=== PATIENT | female | born 1985 | race Caucasian/White ===

== ENCOUNTER 2018-08-24 05:25 | Inpatient (IN) | payer OTHER ==
[2018-08-24] MEDS ORDERED: OXYTOCIN 30 UNITS/LR 500 ML IV ×5 (07:30→22:30)
[2018-08-24] MEDS ORDERED: BUTORPHANOL 2 MG INJ IV ×2 (07:30)
[2018-08-24] MEDS ORDERED: MISOPROSTOL 200 MCG TAB PR ×2 (07:30→22:30)
[2018-08-24] MEDS ORDERED: CARBOPROST 250 MCG INJ IM ×2 (07:30→22:30)
[2018-08-24] MEDS ORDERED: IBUPROFEN 600 MG TAB PO (07:30)
[2018-08-24] MEDS ORDERED: LIDOCAINE 1% (MPF) 30 ML INJ INJ (07:30)
[2018-08-24] MEDS ORDERED: METHYLERGONOVINE 0.2 MG INJ IM ×2 (07:30→22:30)
[2018-08-24 08:45] LABS: ADD MAN DIFF? NO
[2018-08-24 08:49] LABS: WHITE BLOOD COUNT 12.1 10^3/ul (4.8-10.8)
[2018-08-24 08:49] LABS: BASOPHIL # 0.1 10^3/ul (0.0-0.1); BASOPHILS % 0.5 % (0.0-2.0); EOSINOPHILS # 0.1 10^3/ul (0.0-0.5); EOSINOPHILS % 0.9 % (0.0-7.0); HEMATOCRIT 34.6 % (37.0-47.0); HEMOGLOBIN 11.5 g/dl (12.0-16.0); LYMPHOCYTES # 2.6 10^3/ul (0.8-2.9); LYMPHOCYTES % 21.4 % (15.0-51.0); MEAN CORPUSCULAR HEMOGLOBIN 28.7 pg (29.0-33.0); MEAN CORPUSCULAR HGB CONC 33.2 g/dl (32.0-37.0); MEAN CORPUSCULAR VOLUME 86.3 fl (82.0-101.0); MONOCYTE # 1.4 10^3/ul (0.3-0.9); MONOCYTES % 11.5 % (0.0-11.0); NEUTROPHIL # 7.7 10^3/ul (1.6-7.5); NEUTROPHILS % 63.5 % (39.0-77.0); PLATELET COUNT 160 10^3/UL (140-415); RED BLOOD COUNT 4.01 10^6/ul (4.20-5.40); RED CELL DISTRIBUTION WIDTH 14.3 % (11.5-14.5)
[2018-08-24 09:12] LABS: INR 0.89; PROTIME 12.1 Sec (11.9-14.9); PT RATIO 0.9
[2018-08-24 09:13] LABS: PARTIAL THROMBOPLASTIN TIME 26.4 Sec (23.0-35.0)
[2018-08-24] MEDS: AMPICILLIN 2 GM/NS (PMX) 100 ML IV (09:33)
[2018-08-24] MEDS: LACTATED RINGER'S 1,000 ML IV ×3 (09:33→22:49)
[2018-08-24 09:52] LABS: HEPATITIS B SURFACE ANTIGEN NEGATIVE (NEGATIVE)
[2018-08-24] MEDS: AMPICILLIN 1 GM/NS (PMX) 50 ML IV ×2 (13:56→18:23)
[2018-08-24 14:57] LABS: RAPID PLASMA REAGIN NONREACTIVE (NR)
[2018-08-24] MEDS ORDERED: FENTAnyl 2MCG/ML-ROPIV 0.2% 100 ML (17:43)
[2018-08-24] MEDS: FENTAnyl 2MCG/ML-ROPIV 0.2% 100 ML BAG EPI (18:19)
[2018-08-24] MEDS: OXYTOCIN 30 UNITS/LR 500 ML IV (18:30)
[2018-08-24] MEDS ORDERED: NALOXONE (0.4 MG/ML) INJ IV (18:30)
[2018-08-24] MEDS ORDERED: CEFAZOLIN 2 GM/50 ML (PMX) 50 ML IVPB (22:30)
[2018-08-24] MEDS ORDERED: ONDANSETRON 4 MG INJ (23:27)
[2018-08-24] MEDS ORDERED: METOCLOPRAMIDE 10 MG INJ (23:27)
[2018-08-24] MEDS ORDERED: MIDAZOLAM 1 MG/ML 2 ML INJ ×5 (23:37→23:51)
[2018-08-24] MEDS ORDERED: LACTATED RINGER'S 1,000 ML IV (23:46)
[2018-08-24] MEDS ORDERED: OXYTOCIN 10 UNIT INJ (23:50)
[2018-08-24] MEDS ORDERED: FENTAnyl 50 MCG/ML VIAL (23:51)
[2018-08-24] MEDS ORDERED: morphine SULFATE/PF (10 MG/10 ML) INJ (23:52)
[2018-08-25] MEDS ORDERED: NALOXONE (0.4 MG/ML) INJ IV
[2018-08-25] MEDS ORDERED: ONDANSETRON 4 MG INJ IV
[2018-08-25] MEDS ORDERED: MIDAZOLAM 1 MG/ML 2 ML INJ IV
[2018-08-25] MEDS ORDERED: HYDROmorphONE 0.5 MG/0.5 ML SYG IV ×2
[2018-08-25] MEDS ORDERED: MEPERIDINE 25 MG INJ IV
[2018-08-25] MEDS ORDERED: EPHEDrine 25 MG/5 ML SYG IV
[2018-08-25] MEDS ORDERED: ZOLPIDEM 5 MG TAB PO
[2018-08-25] MEDS ORDERED: DIPHENHYDRAMINE 50 MG INJ IV ×2
[2018-08-25] MEDS ORDERED: LORAZEPAM 2 MG INJ IV
[2018-08-25] MEDS ORDERED: NALBUPHINE HCL (10 MG/1 ML) INJ IV
[2018-08-25] MEDS ORDERED: AZITHROMYCIN 500MG/250 ML IVPB (00:32)
[2018-08-25] MEDS ORDERED: KETOROLAC 30 MG INJ (00:32)
[2018-08-25] MEDS ORDERED: MISOPROSTOL 200 MCG TAB PR (01:00)
[2018-08-25] MEDS ORDERED: OXYTOCIN 30 UNITS/LR 500 ML IV (01:00)
[2018-08-25] MEDS ORDERED: METHYLERGONOVINE 0.2 MG INJ IM (01:00)
[2018-08-25] MEDS ORDERED: CARBOPROST 250 MCG INJ IM (01:00)
[2018-08-25] MEDS ORDERED: NACL 0.9% 3 ML SYG IV (01:00)
[2018-08-25] MEDS: OXYTOCIN 30 UNITS/LR 500 ML IV (05:17)
[2018-08-25] MEDS: valACYclovir 500 MG TAB PO ×2 (09:29→21:00)
[2018-08-25] MEDS: LACTATED RINGER'S 1,000 ML IV ×2 (13:02→20:00)
[2018-08-25] MEDS: KETOROLAC 30 MG INJ IV (13:09)
[2018-08-25] MEDS: LANOLIN HPA 1 PKT TOP (20:52)
[2018-08-25] MEDS: IBUPROFEN 800 MG TAB PO (22:00)
[2018-08-26] MEDS: LACTATED RINGER'S 1,000 ML IV ×3 (04:00→20:00)
[2018-08-26] MEDS: OXYCODONE/ACETAMINOPHEN (5/325) TAB PO ×5 (04:54→21:35)
[2018-08-26] MEDS: IBUPROFEN 800 MG TAB PO ×3 (05:36→21:34)
[2018-08-26] MEDS: valACYclovir 500 MG TAB PO ×2 (09:13→21:34)
[2018-08-26 09:44] LABS: ADD MAN DIFF? NO
[2018-08-26 09:54] LABS: ABNORMAL IP MESSAGE 1; BASOPHIL # 0.1 10^3/ul (0.0-0.1); BASOPHILS % 0.3 % (0.0-2.0); EOSINOPHILS % 0.3 % (0.0-7.0); HEMATOCRIT 28.2 % (37.0-47.0); HEMOGLOBIN 9.1 g/dl (12.0-16.0); LYMPHOCYTES # 2.5 10^3/ul (0.8-2.9); MEAN CORPUSCULAR HEMOGLOBIN 28.2 pg (29.0-33.0); MEAN CORPUSCULAR HGB CONC 32.3 g/dl (32.0-37.0); MEAN CORPUSCULAR VOLUME 87.3 fl (82.0-101.0); MEAN PLATELET VOLUME 10.3 fl (7.4-10.4); MONOCYTE # 1.7 10^3/ul (0.3-0.9); NEUTROPHIL # 9.9 10^3/ul (1.6-7.5); NEUTROPHILS % 68.6 % (39.0-77.0); PLATELET COUNT 154 10^3/UL (140-415); RED BLOOD COUNT 3.23 10^6/ul (4.20-5.40); RED CELL DISTRIBUTION WIDTH 14.6 % (11.5-14.5)
[2018-08-26 09:54] LABS: WHITE BLOOD COUNT 14.5 10^3/ul (4.8-10.8)
[2018-08-26 10:04] LABS: POSITIVE DIFF @See below
[2018-08-27] MEDS: OXYCODONE/ACETAMINOPHEN (5/325) TAB PO ×4 (01:39→15:02)
[2018-08-27] MEDS: LACTATED RINGER'S 1,000 ML IV (04:00)
[2018-08-27] MEDS: IBUPROFEN 800 MG TAB PO ×2 (05:48→14:05)
[2018-08-27] MEDS: valACYclovir 500 MG TAB PO (09:12)
[2018-08-27] MEDS: DIPHTH/TET/ACEL PERTUSS (ADULT) 0.5 ML VIAL IM* (13:50)
== END 2018-08-27 17:25 | disposition home or self-care (01) | DRG 788 ==
LOC: OBT 05:25 → L-D 08-25 00:37 → PP1 08-25 03:48 → OBT 06:40 → L-D 06:40
PROVIDERS: Obstetrics & Gynecology
PROC: 10D00Z1 Extraction of Products of Conception, Low, Open Approach (ICD-10-PCS; principal; 2018-08-25)
DX: O62.0 Primary inadequate contractions (principal); O33.9 Maternal care for disproportion, unspecified; O76 Abnormality in fetal heart rate and rhythm complicating labor and delivery; O61.9 Failed induction of labor, unspecified; O99.824 Streptococcus B carrier state complicating childbirth; Z3A.39 39 weeks gestation of pregnancy; Z37.0 Single live birth; Z23 Encounter for immunization
CPT/HCPCS: 62322; 85025; 85610; 85730; 86592; 86850; 86900; 86901; 87340; 90715; 99464